=== PATIENT | male | born 1970 | race Caucasian/White ===

== ENCOUNTER → 2016-11-08 | Outpatient (CLI) | payer OTHER ==
--- NOTE | 2016-11-08 15:38 | DIAGNOSTIC IMAGING REPORT ---
CT SCAN OF THE ABDOMEN AND PELVIS WITHOUT IV CONTRAST CLINICAL HISTORY: Hematuria. COMPARISON STUDY: Abdominal CT dated 12/13/2015. TECHNIQUE: CT scan of the abdomen and pelvis is performed from the lung bases to the proximal femora. Images are reviewed in the axial, sagittal, and coronal planes. IV contrast was not administered for this examination. Automated dose control exposure was utilized. The examination is degraded by large body habitus, and by streak artifact from the body wall abutting the CT gantry. CT DOSE: 1746.18 mGy.cm FINDINGS: Lung bases: The heart is normal in size and without pericardial effusion. Linear atelectasis versus scarring is present the lung bases. There is no airspace consolidation or pleural effusion. There is a small hiatal hernia. Liver: The unenhanced liver is normal in size, contour, and attenuation. There is no intrahepatic biliary ductal dilatation. Gallbladder: Unremarkable. Spleen: Normal in size and attenuation. Pancreas: Unremarkable. Adrenal glands: Unremarkable. Kidneys: The unenhanced kidneys are normal in size and without hydronephrosis. There are numerous parapelvic left renal cysts. A calculus or cluster of nonobstructing calculi in the lower pole of the left kidney measures up to 1.4 cm. No right renal calculi are seen. There is no evidence of contour deforming renal mass lesion. Subtle hyperdense material is present within the left renal pelvis, possibly representing blood clots. Abdominal vasculature: The abdominal aorta is normal in course and caliber noting mild atherosclerotic calcification. Bowel: The small bowel and colon are normal in course and caliber. There is mild to moderate colonic fecal retention. The appendix is not identified and reported surgically absent. Peritoneum: There is no intraperitoneal free air or abdominal ascites. There is a large fat-containing umbilical hernia. Lymphadenopathy: None. Pelvic viscera: The bladder, prostate, and seminal vesicles are normal as visualized. Skeletal structures: No lytic or blastic lesions are seen. There is mild lumbosacral spondylosis. IMPRESSION: 1. There is a 1.4 cm calculus or cluster of nonobstructing calculi identified in the lower pole of the left kidney. 2. There is no hydronephrosis. Numerous parapelvic cysts are seen on the left. 3. Subtle hyperdense material is suggested within the left renal pelvis, and could potentially represent blood clots. Consider follow-up with urology. 4. Hiatal hernia. 5. Additional findings as above. Electronically signed by: Sami Morin M.D. 11/08/2016 3:37 PM Dictated Date/Time: 11/08/2016 3:30 PM
== END | disposition home or self-care (01) ==
LOC: C.CTS 15:10
PROVIDERS: ATTEND Urology
DX: R31.9 Hematuria, unspecified (principal); N20.0 Calculus of kidney; N28.1 Cyst of kidney, acquired; R93.41 Abnormal radiologic findings on diagnostic imaging of renal pelvis, ureter, or bladder; K44.9 Diaphragmatic hernia without obstruction or gangrene

== ENCOUNTER → 2017-11-14 | Outpatient (CLI) | payer OTHER ==
--- NOTE | 2017-11-14 13:52 | DIAGNOSTIC IMAGING REPORT ---
ABD/PELVIS WITHOUT FOR STONE CLINICAL HISTORY: 47 years-old Male presenting with STONES. TECHNIQUE: Multidetector CT of the abdomen and pelvis was performed without the use of intravenous contrast. IV contrast: None. A dose lowering technique was used consistent with the principles of ALARA (as low as reasonably achievable). COMPARISON: 11/08/2016. CT DOSE (mGy.cm): The estimated cumulative dose is 1860.58 mGy.cm. FINDINGS: [employer] topogram: Unremarkable. Lung bases: Bandlike opacities at the lung bases, likely atelectasis or scarring. Aortic valve calcification. Normal heart size. No pericardial or pleural effusion. Liver: Normal morphology. Density consistent with hepatic steatosis. Biliary: No gross biliary ductal dilatation allowing for noncontrast technique. Normal gallbladder. Pancreas: Normal noncontrast appearance. Spleen: Normal noncontrast appearance. Adrenal glands: Normal noncontrast appearance. Kidneys and ureters: Multiple parapelvic cysts noted bilaterally more prominent on the left. A cluster of nonobstructing calculi is again noted at the lower pole of the left kidney. No convincing evidence of hydronephrosis. Ureters normal. Bladder: Normal. Pelvic organs: Prostate and seminal vesicles normal. Bowel: Mild stool burden throughout the normal caliber colon. No bowel obstruction. Peritoneal cavity: No free fluid or intraperitoneal gas. Trace infiltration of the small bowel mesentery. Lymph nodes: No gross lymphadenopathy allowing for noncontrast technique. Vasculature: Atherosclerosis of the normal caliber abdominal aorta. Abdominal wall: Normal. Musculoskeletal: Degenerative changes of the spine. IMPRESSION: 1. Nonobstructing cluster of calculi at the lower pole of the left kidney. No hydronephrosis. No ureteral calculi. No evidence of a recently passed calculus. 2. Prominent bilateral parapelvic renal cysts. 3. Bibasilar atelectasis. Electronically signed by: Darío Escobedo M.D. 11/14/2017 1:50 PM Dictated Date/Time: 11/14/2017 1:45 PM
== END | disposition home or self-care (01) ==
LOC: C.CTS 12:18
PROVIDERS: ATTEND Urology
DX: N20.0 Calculus of kidney (principal)

== ENCOUNTER → 2018-04-23 | Outpatient (CLI) | payer OTHER ==
--- NOTE | 2018-04-23 11:46 | DIAGNOSTIC IMAGING REPORT ---
CHEST 2 VIEWS ROUTINE CLINICAL HISTORY: J20.9 SHORTNESS OF BREATH AND COUGH. COMPARISON STUDY: Outside radiograph performed May 2017 FINDINGS: The cardiac and mediastinal contours are normal. There is no evidence of focal pulmonary consolidation. There is no evidence of failure. No pleural effusions are visualized.[ There is stable minor linear atelectasis/scarring at the left lung base. IMPRESSION: No active disease in the chest. Electronically signed by: Venkatesh Villagomez M.D. 04/23/2018 11:45 AM Dictated Date/Time: 04/23/2018 11:44 AM
== END | disposition home or self-care (01) ==
LOC: C.RAD1850 11:20
PROVIDERS: ATTEND Internal Medicine Critical Care Medicine
DX: J20.9 Acute bronchitis, unspecified (principal)